=== PATIENT | male | born 1955 | race Caucasian/White ===

== ENCOUNTER → 2018-07-18 | Outpatient (CLI) | payer OTHER ==
[~2018-07-18] MED LIST: ACET-1600 PO; CETI-158 PO; MELA10TA PO; MELO15TA24 PO; NAPR220C2 PO; OMEG100023 PO
[2018-07-18 15:03] LABS: MICROSCOPIC NOT IND
[2018-07-18 15:04] LABS: BASOPHILS # (AUTO) 0.02 x10^3/uL (0-0.1); BASOPHILS % (AUTO) 0 % (0-1); EOSINOPHILS # (AUTO) 0.19 x10^3/uL (0-0.4); EOSINOPHILS % (AUTO) 2 % (1-7); LYMPHOCYTES # (AUTO) 2.12 x10^3/uL (1-3.4); LYMPHOCYTES % (AUTO) 20 % (22-44); MD NO; MEAN CORPUSCULAR HEMOGLOBIN 29.4 pg (27.5-34.5); MEAN CORPUSCULAR HGB CONC 33.1 g/dL (33.2-36.2); MEAN CORPUSCULAR VOLUME 88.8 fL (81-97); MEAN PLATELET VOLUME 9.3 fL (7.4-10.4); MONOCYTES # (AUTO) 0.58 x10^3/uL (0.2-0.8); MONOCYTES % (AUTO) 6 % (2-9); NEUTROPHILS % (AUTO) 72 % (42-75); PLATELET COUNT 215 x10^3/uL (130-400); RED BLOOD COUNT 5.47 x10^6/uL (4.38-5.82); RED CELL DISTRIBUTION WIDTH 13.4 % (9.4-14.8)
[2018-07-18 15:07] LABS: CULTURE INDICATED? NO
[2018-07-18 15:14] LABS: ANION GAP 9 mmol/L (5-15); CALCIUM 9.1 mg/dL (8.5-10.1); CHLORIDE 104 mmol/L (98-107)
[2018-07-18 15:15] LABS: CREATININE 0.96 mg/dL (0.7-1.3)
== END | disposition home or self-care (01) ==
LOC: STAR 13:58
PROVIDERS: ATTEND Orthopaedic Surgery
DX: Z01.818 Encounter for other preprocedural examination (principal); J44.9 Chronic obstructive pulmonary disease, unspecified; S83.249A Other tear of medial meniscus, current injury, unspecified knee, initial encounter; M17.12 Unilateral primary osteoarthritis, left knee; M25.562 Pain in left knee
CPT/HCPCS: 36415; 71046; 80048; 81003; 85025; 93005

== ENCOUNTER 2018-08-01 05:30 | Day surgery (SDC) | payer OTHER ==
[~2018-08-01] VITALS: Ht 195.6 cm; Wt 123.5 kg
[2018-08-01] MEDS ORDERED: LACTATED RINGERS 1,000 ML IV SCH (06:00)
[2018-08-01 06:02] VITALS: BP 155/91
[2018-08-01] MEDS ORDERED: MIDAZOLAM 1 MG/ML, 2ML ONE (06:11)
[2018-08-01] MEDS ORDERED: FENTANYL PF 250 MCG/5ML ONE (06:11)
[2018-08-01] MEDS ORDERED: BUPIVACAINE/PF 0.5% ONE (06:24)
[2018-08-01] MEDS ORDERED: PROPOFOL 10 MG/ML, 20ML ONE (06:41)
[2018-08-01] MEDS ORDERED: PROMETHAZINE 12.5 MG SUPP PR PRN (07:00)
[2018-08-01] MEDS ORDERED: PROMETHAZINE 25 MG/ML, 1ML IV PRN (07:00)
[2018-08-01] MEDS ORDERED: ONDANSETRON 2MG/ML, 2ML IV PRN (07:00)
[2018-08-01] MEDS ORDERED: OXYcodone 5 MG/5 ML ORAL.SOL UDC PO PRN (07:00)
[2018-08-01] MEDS ORDERED: MEPERIDINE/PF 25MG/0.5ML IVPush PRN (07:00)
[2018-08-01] MEDS ORDERED: ONDANSETRON ODT 8 MG PO PRN (07:00)
[2018-08-01] MEDS ORDERED: PROMETHAZINE 25 MG/ML, 1ML IM PRN ×2 (07:00)
[2018-08-01] MEDS ORDERED: ACETAMINOPHEN 325 MG TABLET PO PRN (07:00)
[2018-08-01] MEDS ORDERED: HYDROmorphone 2 MG/ML, 1ML IVPush PRN (07:00)
[2018-08-01] MEDS ORDERED: PROMETHAZINE 25 MG SUPP PR PRN (07:00)
[2018-08-01] MEDS ORDERED: MORPHINE SULFATE 4 MG/ML, 1ML IVPush PRN (07:00)
[2018-08-01] MEDS ORDERED: SODIUM CHLORIDE 0.9% PF 10ML ONE (07:09)
[2018-08-01] MEDS ORDERED: CEFAZOLIN 1,000 MG ONE ×3 (07:09)
[2018-08-01] MEDS ORDERED: FENTANYL PF 100 MCG/2ML ONE (07:25)
[2018-08-01] MEDS ORDERED: ACETAMINOPHEN 650 MG/20.3 ML UDC ONE (07:25)
[2018-08-01] MEDS ORDERED: OXYcodone 5 MG/5 ML ORAL.SOL UDC ONE (07:26)
[2018-08-01] MEDS: FENTANYL PF 100 MCG/2ML IV PRN ×2 (07:30→07:50)
== END 2018-08-01 09:00 | disposition home or self-care (01) ==
LOC: OUT 05:30
PROVIDERS: ATTEND Orthopaedic Surgery
DX: S83.242A Other tear of medial meniscus, current injury, left knee, initial encounter (principal); M65.862 Other synovitis and tenosynovitis, left lower leg; E11.9 Type 2 diabetes mellitus without complications; X58.XXXA Exposure to other specified factors, initial encounter; Y93.89 Activity, other specified; Y92.89 Other specified places as the place of occurrence of the external cause; Y99.8 Other external cause status; Z79.899 Other long term (current) drug therapy
CPT/HCPCS: 29876; 29881; J0690; J2250; J2704; J3010; J3490; J7120